=== PATIENT | male | born 1935 | race Caucasian/White ===

== ENCOUNTER 2019-06-02 14:36 | Outpatient (CLI) | payer MEDICARE, OTHER, SELFPAY ==
--- NOTE | ~2019-06-02 | CT_ITS ---
EXAMINATION: CT abdomen pelvis wo/w con DATE: 06/02/2019 15:36 INDICATION: Gross hematuria. TECHNIQUE: Computed tomography (CT) of the abdomen and pelvis was performed without and with intraven ous contrast using a total of 130 mL Omnipaque-350 intravenous contrast with a double-bolus technique for simultaneous opacification of the renal parenchyma and renal collecting system. Automated exposu re control and iterative reconstruction technique were employed. The dose-length product was 1473.73 mGy-cm. COMPARISON: CT abdomen and pelvis 10/10/2010 FINDINGS: The visualized portions of the lung bases demonstrated mild atelectasis. No pleural effusion. The hea rt size is normal. No pericardial effusion. The liver is normal. There are gallstones in the gallblad robert, which is normal in size. The spleen is normal. There are calcifications in the pancreas, consist ent with chronic pancreatitis. The adrenal glands and left kidney are normal. There is a 5 mm cyst in right kidney. There is no urolithiasis. The ureters are well opacified and are normal. There is diff use bladder wall thickening, likely secondary to chronic outlet obstruction from the severely enlarge d prostate. There is diverticulosis of the colon without evidence of diverticulitis. There are no dil ated loops of bowel. The appendix is normal. There are no pathologically enlarged lymph nodes. There is no free intraperitoneal fluid. There are bilateral inguinal hernias containing fat. There is mild thoracolumbar spondylosis. There is mild chronic anterior wedging of multiple lower thoracic vertebra l bodies. IMPRESSION: 1. Chronic diffuse bladder wall thickening, likely secondary to chronic outlet obstruction from the s everely enlarged prostate. Reviewed, dictated and finalized at location A. OF ENGLISH IMPRESSION: 1. Chronic diffuse bladder wall thickening, likely secondary to chronic outlet obstruction from the severely enlarged prostate.
[2019-06-02 15:12] LABS: Blood Urea Nitrogen 12 mg/dL (8-26); Estimated Glomerular Filt Rate > 60
== END 2019-06-02 14:37 | disposition home or self-care (01) ==
LOC: ANHIMG 14:37
PROVIDERS: PCP Family Medicine; Visit Provider Urology
DX: R31.0 Gross hematuria (principal); N32.89 Other specified disorders of bladder
CPT/HCPCS: 74178; Q9967